=== PATIENT | male | born 2000 | race Caucasian/White ===

== ENCOUNTER 2021-04-11 11:55 | Emergency (ER) | payer OTHER ==
[~2021-04-11] VITALS: Ht 185.4 cm; Wt 140.0 kg
[2021-04-11] MEDS ORDERED: LORazepam 1 MG tablet PO ONE (13:10)
[2021-04-11 13:34] LABS: BASOPHILS % (AUTO) 0.5 % (0-1); EOSINOPHILS # (AUTO) 0.1 X10'3 (0-0.9); EOSINOPHILS % (AUTO) 0.8 % (0-6); HEMATOCRIT 43.5 % (42.0-52.0); LYMPHOCYTES # (AUTO) 1.7 X10'3 (1.1-4.8); LYMPHOCYTES % (AUTO) 21.1 % (21-51); MEAN CORPUSCULAR HEMOGLOBIN 30.4 PG (27.0-31.0); MEAN CORPUSCULAR HGB CONC 34.5 g/dL (33.0-36.5); MEAN PLATELET VOLUME 8.4 FL (7.4-10.4); MONOCYTES # (AUTO) 0.9 X10'3 (0-0.9); MONOCYTES % (AUTO) 11.1 % (2-12); NEUTROPHILS # (AUTO) 5.3 X10'3 (1.8-7.7); NEUTROPHILS % (AUTO) 66.5 % (42-75); PLATELET COUNT 286 X10'3 (140-440); RED BLOOD COUNT 4.94 X10'6 (4.70-6.10); RED CELL DISTRIBUTION WIDTH 14.2 % (11.5-14.5); WHITE BLOOD COUNT 7.9 X10'3 (4.5-11.0)
[2021-04-11 13:39] LABS: ALANINE AMINOTRANSFERASE 24 U/L (12-78); ALBUMIN 4.3 G/DL (3.4-5.0); ALBUMIN/GLOBULIN RATIO 1.2 (1.1-1.5); ALKALINE PHOSPHATASE 61 IU/L (46-116); ANION GAP 11 (8-16); ASPARTATE AMINO TRANSFERASE 13 U/L (10-37); BILIRUBIN,TOTAL 0.8 MG/DL (0.1-1.0); BLOOD UREA NITROGEN 18 MG/DL (7-18); CALCIUM 9.4 MG/DL (8.5-10.1); CHLORIDE 106 MMOL/L (99-107); CREATININE 0.82 MG/DL (0.60-1.10); GLUCOSE 112 MG/DL (70-104); POTASSIUM 3.6 MMOL/L (3.5-5.1); SODIUM 141 MMOL/L (135-145); TOTAL CARBON DIOXIDE 23.6 MMOL/L (24-32); eGFR > 90 ML/MIN
[2021-04-11 13:48] LABS: ETHANOL < 0.010 GM/DL (0.0-0.010)
[2021-04-11 14:14] LABS: URINE AMPHETAMINE SCREEN NEGATIVE (Neg); URINE BARBITUATE SCREEN NEGATIVE (Neg); URINE BENZODIAZEPINES SCREEN NEGATIVE (Neg); URINE CANNABINOID SCREEN POSITIVE (Neg); URINE COCAINE SCREEN NEGATIVE (Neg); URINE METHADONE SCREEN NEGATIVE (Neg); URINE OPIATE SCREEN NEGATIVE (Neg); URINE PHENCYCLIDINE SCREEN NEGATIVE (Neg)
[2021-04-11 14:19] LABS: CLARITY,URINE SLIGHTLY CLOUDY (Clear); COLOR,URINE YELLOW (Yellow); GLUCOSE, URINE NEGATIVE (Neg); KETONES,URINE NEGATIVE (Neg); LEUKOCYTE ESTERASE ,URINE NEGATIVE (Neg); NITRITES, URINE NEGATIVE (Neg); OCCULT BLOOD,URINE NEGATIVE (Neg); PROTEIN,URINE TRACE mg/dl (Neg); UROBILINOGEN,URINE 0.2 E.U/dL (0.2-1.0)
[2021-04-11 14:24] LABS: UA COLLECTION TYPE CLN CATCH MIDSTREAM
[2021-04-11 14:27] LABS: MUCUS STRANDS MANY /LPF (Neg)
[2021-04-11 14:34] LABS: SPERM MODERATE /HPF (NEGATIVE)
[2021-04-11 14:35] LABS: TRANSITIONAL EPI CELLS,URINE MODERATE /HPF; WBC,URINE 0-4 /HPF (0-4)
[2021-04-11 14:37] LABS: BACTERIA,URINE FEW /HPF (Neg); RBC,URINE 0-2 /HPF (0-2); SQUAMOUS EPITHELIAL CELL,UR FEW /LPF (FEW)
[2021-04-11] MEDS ORDERED: QUETIAPINE 50 MG TAB.SR.24H PO STA (16:12)
[2021-04-11] MEDS ORDERED: CLON0.5T4 PO (19:03)
[2021-04-11] MEDS ORDERED: SERT-434 PO (19:03)
[2021-04-11] MEDS ORDERED: clonazePAM 1mg tablet PO ONE (19:10)
--- NOTE | 2021-04-12 00:21 | NUR ---
pt ambulated to restroom on a steady gait. sitter in line of sight.
[2021-04-12] MEDS: clonazePAM 0.5mg tablet PO PRN ×2 (00:42→20:20)
--- NOTE | 2021-04-12 00:44 | NUR ---
pt given po medication as ordered. pt tolerated well.
[2021-04-12] MEDS ORDERED: OLANZapine 2.5MG tablet PO STA (01:53)
[2021-04-12] MEDS: olanzapine 10mg tablet PO SCH ×2 (02:02→07:12)
[2021-04-12] MEDS ORDERED: LORazepam 1 MG tablet PO ONE (07:00)
--- NOTE | 2021-04-12 07:06 | NUR ---
PACKET FAXED TO [facility] FROM BOTH ADMITTING FAX AND NURSES STATION [employer]ACHINES AT 0700 04/12/21
[2021-04-12] MEDS: sertraline 50mg tablet PO SCH (07:11)
[2021-04-12] MEDS ORDERED: diphenhydrAMINE 50 mg/ml inj IM ONE (08:55)
[2021-04-12] MEDS ORDERED: haloperidol lactate 5mg/ml inj IM ONE ×2 (08:55→15:25)
[2021-04-12] MEDS ORDERED: OLANZapine **IM** 10 mg inj. IM ONE (10:15)
[2021-04-12] MEDS ORDERED: clonazePAM 1mg tablet PO ONE (10:15)
[2021-04-12] MEDS ORDERED: midazolam 1 mg/ML 2ml injection IV ONE (11:05)
--- NOTE | 2021-04-12 12:33 | NUR ---
Patient moves from main ER to ER overflow. Oriented to the unit. Somewhat disorganized at this time. When given his lunch tray pt asks, "What shot are you giving me?" Somewhat agitated and restless. Moving around in bed and pacing briefly. Has to be redirected from the exit. Asks frequent questions; whether he is getting meds, when the doctor will see him, if he can shower. Refuses lunch. Resting in bed at this time but continues to audibly exhale frequently.
--- NOTE | 2021-04-12 13:32 | NUR ---
Chayo CUELLAR, stated that patient had a MENDEZ and was requesting tylenol for the pain. SPoke with Dr. acharya who gave verbal order for Tylenol 650 mg PO PRN for pain Q8H to start now. Chayo CUELLAR aware of new order.
[2021-04-12] MEDS ORDERED: acetaminophen 325mg tablet PO PRN (13:35)
--- NOTE | 2021-04-12 14:10 | NUR ---
Patient is awake OOB slowly paces the unit. More linear but continues to be forgetful and asks about lunch and medications several times then forgets again.
--- NOTE | 2021-04-12 15:53 | NUR ---
Patient is awake in bed talking on the phone.
--- NOTE | 2021-04-12 17:25 | NUR ---
Patient is lying in bed. IM Haldol appears helpful but pt still appears somewhat restless.
--- NOTE | 2021-04-12 18:24 | NUR ---
patient is noted talking to himself while resting in bed, no s/sx acute distress
--- NOTE | 2021-04-12 18:30 | NUR ---
PATIENT IS AWAKE AND EXHIBITING SOME ANXIETY. PATIENT STATES HE CAN'T SLEEP. PATIENT IS REDIRECTED BACK TO HIS BED.
--- NOTE | 2021-04-12 23:32 | NUR ---
PATIENT IS SLEEPING QUIETLY ON HIS LEFT SIDE. FREQUENT ROUNDING FOR PATIENT SAFETY.
--- NOTE | 2021-04-13 03:32 | NUR ---
PATIENT SLEEPING QUIETLY IN A LOW FOWLERS POSITION IN BED. NO DISTRESS.
--- NOTE | 2021-04-13 06:30 | NUR ---
PT IS RESTING ON HIS BED SHAKING HIS FEET.
--- NOTE | 2021-04-13 07:05 | NUR ---
PT REQUESTING HIS MEDICATIONS. HE REPORTS ANXIETY AND FEAR OF BEING HERE.
[2021-04-13] MEDS: sertraline 50mg tablet PO SCH (07:14)
[2021-04-13] MEDS: olanzapine 10mg tablet PO SCH (07:14)
[2021-04-13] MEDS: clonazePAM 0.5mg tablet PO PRN ×2 (07:14→19:53)
[2021-04-13] MEDS ORDERED: LORazepam 1 MG tablet PO ONE (07:55)
--- NOTE | 2021-04-13 09:22 | NUR ---
PT CONTINUES TO REQUEST MEDICATIONS TO HELP HIM "FALL ASLEEP." PT C/O DEPRESSION NOW AND IS UPSET OVER HIS LAST PHONE CALL WITH HIS DAD.
--- NOTE | 2021-04-13 11:18 | NUR ---
PT IS NOW RESTING ON HIS RIGHT SIDE. RR EVEN AND UNLABORED. PT SHARED IN THE PAST HE USED FENTANYL. HE REPORTS NOT USING IT FOR AWHILE. HE STATES, "I DON'T USE DRUGS."
[2021-04-13] MEDS: clonazePAM 1mg tablet PO SCH ×2 (12:04→19:06)
--- NOTE | 2021-04-13 12:57 | NUR ---
PT ATE LUNCH AND IS NOW RESTING AGAIN. RR EVEN AN UNLABORED.
--- NOTE | 2021-04-13 14:36 | NUR ---
PT HAS BEEN SOCIALIZING SOME WITH STAFF AND PEERS. HE C/O ANXIETY MOST OF THE DAY. HE REPORTS RESTLESS LEG SYNDROME ALONG WITH RACING THOUGHTS. HE HAS BEEN GIVEN OLANZAPINE FOR TX.
--- NOTE | 2021-04-13 16:52 | NUR ---
PT APPEARS TO BE SLEEPING. RR EVEN AND UNLABORED.
--- NOTE | 2021-04-13 17:55 | NUR ---
PT IS ON THE PHONE. HE HAS BEEN PLEASANT MOST OF THIS SHIFT.
[2021-04-13] MEDS: quetiapine 100mg tablet PO SCH (19:06)
--- NOTE | 2021-04-13 20:00 | NUR ---
One to one with the patient who is reporting that his anxiety is very high. He also reports continued suicidal thoughts that are intrussive. He also reports racing thoughts. When asked if he has been feeling irritable he replied, "I get irritated with myself a lot" He denies thoughts to harm others. He reported that at home he was having intrussive thoughts to put himself in the wood splitter.
--- NOTE | 2021-04-13 21:07 | NUR ---
At around 1999 the patient was very upset by agitated peers. He asked for PRN klonopin which he received. At the time he seemed close to tears. He does appear to be sleeping at this time.
--- NOTE | 2021-04-13 23:53 | NUR ---
The patient appears to be sleeping
--- NOTE | 2021-04-14 01:05 | NUR ---
The patient appears to be sleeping
--- NOTE | 2021-04-14 02:38 | NUR ---
The patient appears to be sleeping
--- NOTE | 2021-04-14 04:27 | NUR ---
The patient appears to be sleeping
[2021-04-14] MEDS: olanzapine 10mg tablet PO SCH (06:32)
[2021-04-14] MEDS: clonazePAM 1mg tablet PO SCH ×2 (06:32→20:04)
[2021-04-14] MEDS: sertraline 50mg tablet PO SCH (06:33)
--- NOTE | 2021-04-14 07:00 | NUR ---
Received patient while he was awake in bed. Patient requested all his morning meds to be given at 0632. Patient continually thrashing around in bed and moaning loudly. Patient reports his medications are not working and he is having anxiety, and reports his legs are "moving all the time." Informed patient that he received his medications at 0632 and it is currently 0700, and we need to wait before we give him any medications. At 0730 patient continues to moan and thrash around in the bed. Went to the ED and spoke with Dr. Greenberg at 0745. Dr. Greenberg ordered Atarax to be given to patient now. Atarax administered at 0749. 0830-Patient continues to inform that the "anxiety medication is not helping." Patient now requesting Ativan 2mg. Informed patient that Dr. Greenberg does not plan to administer any medications at this time. Patient settled down and is now resting at 0845.
[2021-04-14] MEDS ORDERED: hydrOXYzine 25 MG tablet PO ONE (07:45)
--- NOTE | 2021-04-14 09:00 | NUR ---
Patient resting in bed. Up the the bathroom without assistance.
--- NOTE | 2021-04-14 10:05 | NUR ---
Patient requests Ativan for anxiety and "shaking legs." No prn med ordered; patient had Atarax and clonazapam this morning. Patient guided in breathing technique to decrease anxiety.
--- NOTE | 2021-04-14 11:00 | NUR ---
Patient showing no s/s of anxiety. Calm and reflecting that he is feeling much better to staff members. Ambulating in the department. Coloring at this time.
--- NOTE | 2021-04-14 13:00 | NUR ---
Patient talking on the phone with friends about the playoff football games. Patient appears without anxiety at this time. Patient reports that the Atarax helped and feels so much better. Patient met with Kailash, [facility], and informed Kailash that he did not feel safe leaving here. Kailash extended patients 5150 for the next 72 hours per his report.
--- NOTE | 2021-04-14 15:10 | NUR ---
Patient resting in bed eating crackers and talking about football game. Patient smiling and talkative at this time. Patient then stated "I want my Klonopin half mg to be at bedtime and anytime during the day." Informed patient for the second time that Dr. Greenberg was not going to change any of his medications today as he has the medications that he needs were already given this morning and Atarax was also given. Will continue to monitor patient's behavior and anxiety and request medications as needed. Max given techniques to rest and redirect his current complaint of anxiety.
--- NOTE | 2021-04-14 16:35 | NUR ---
Patient speaking to friends on the phone about the football playoffs. Patient moaning at times, then stops abruptly and requests "candy." Patient ambulated in multiple laps in the middle of the nursing department. Will continue to monitor.
--- NOTE | 2021-04-14 17:25 | NUR ---
Patient continues to call multiple friends regarding the current football playoffs. Patient involved in multiple conversations with staff members. Pleasant and happy at this time. Will continue on 5150 per Kailash, [facility].
[2021-04-14] MEDS: clonazePAM 0.5mg tablet PO PRN (18:48)
--- NOTE | 2021-04-14 19:56 | NUR ---
Pt awake at start of shift, immediately began asking for medications. Pt educated on available medications and plan for tonight. Pt verbalized understanding. Pt pleasant and cooperative. Intrusive at times into other pts conversations with staff.
[2021-04-14] MEDS: quetiapine 100mg tablet PO SCH (20:04)
--- NOTE | 2021-04-15 01:11 | NUR ---
Pt awake to BR independantly. Asked for medications to "help me go back to sleep" accepted that he had nothing available.
[2021-04-15] MEDS ORDERED: hydrOXYzine 10 MG tablet PO STA (03:02)
--- NOTE | 2021-04-15 03:16 | NUR ---
Pt awake c/o Anxiety order for x1 10mg Atarax given. Pt appears to have gone back to sleep.
--- NOTE | 2021-04-15 05:13 | NUR ---
Sitting up awake in bed.
[2021-04-15 05:42] VITALS: BP 132/81
--- NOTE | 2021-04-15 07:00 | NUR ---
Patient ambulates with steady gait to nurse desk and restroom. Patient views other patient brushing teeth and desires and practices this healthy hygeine at being inspired by neighbor. Patient asks 3 times about receiving morning meds. Patient is coached about coping mechanisms such as distraction, humor, reflection, and rest as opposed to defaulting to medications when feeling anxious. Meds due at 0800. Compromise is met to give meds at 0730 to appease patient, das trust, and reward behavior for meeting staff correction. Patient denies any self-harm thoughts at this time and appears in physical health that is WNL. Denies pain or discomfort.
[2021-04-15] MEDS: olanzapine 10mg tablet PO SCH (07:31)
[2021-04-15] MEDS: clonazePAM 1mg tablet PO SCH ×2 (07:31→12:32)
[2021-04-15] MEDS: sertraline 50mg tablet PO SCH (07:32)
--- NOTE | 2021-04-15 09:38 | NUR ---
Patient has been yelling out/crying/lamenting his long-term time in this holding area. He is using profanitites and is frustrated that he has been here so long. He expresses anger and frustration at his neighbor getting a bed upstairs before him. He doesn't have PRNs on his list that he used to because he is down to almost no coping skills other than medication. He has been very fixated on medications the entire morning. He is again coached about breathing/meditation and distraction. I express that I also would be frustrated in having to spend that much time here. He speaks with his mother on the phone and then I speak with her as well. Patient becomes very upset at hearing from social worker psychiatric that his delay is in part due to an insurance snag. Patient is crying, yelling out with emotional behavior underdeveloped for his age in years. Patient is coached more and he is frustrated that he is staring at white eedn for days without therapy. I express understanding him. He lies down and is now resting again.
--- NOTE | 2021-04-15 10:30 | NUR ---
Patient initiates apology for outburst to me and my coworker.
--- NOTE | 2021-04-15 11:15 | NUR ---
Patient states that he is feeling twitchy and antsy. I ask if he would like to walk around the unit with me. He states that he will pace for a bit. We banter about exercise and he is using humor, calm, and in better spirits.
--- NOTE | 2021-04-15 12:33 | NUR ---
Patient asks for PRN and given time of day coupled with his recent developing use of coping skills, we accomodate. He is then notified that he is finally getting a bed upstairs. Patient shares that he is so relieved and happy about this.
--- NOTE | 2021-04-15 13:11 | NUR ---
Pt left to [facility] at 1240
[2021-04-15] MEDS ORDERED: CLON-527 PO (17:27)
[2021-04-15] MEDS ORDERED: OLAN10TA3 PO (17:27)
[2021-04-15] MEDS ORDERED: QUET-1 PO (17:28)
[2021-04-16] MEDS ORDERED: HYDR-3686 PO (15:59)
== END 2021-04-15 12:50 ==
LOC: ER 11:56
DX: R45.851 Suicidal ideations (principal); Z20.822 Contact with and (suspected) exposure to COVID-19; F32.9 Major depressive disorder, single episode, unspecified; F41.9 Anxiety disorder, unspecified; R45.1 Restlessness and agitation; Z79.899 Other long term (current) drug therapy
CPT/HCPCS: 36415; 80053; 80305; 80320; 81001; 84443; 85025; 87635; 96372; 96374; 99285; C9803; J1200; J1630; J2250; J3490

== ENCOUNTER 2021-04-15 12:15 | Inpatient (IN) | payer OTHER ==
[~2021-04-15] VITALS: Ht 185.4 cm; Wt 69.3 kg
[~2021-04-15 12:15] MED LIST: CLON0.5T4 PO; SERT-434 PO
[2021-04-15 12:50] VITALS: BP 130/82
[2021-04-15] MEDS ORDERED: mag hydrox/Alum hydrox/simeth 30ml oral suspension PO PRN (13:10)
[2021-04-15] MEDS ORDERED: magnesium hydroxide 30ml (MOM) UD suspension PO PRN (13:10)
[2021-04-15] MEDS ORDERED: loperamide 2mg capsule PO PRN (13:10)
[2021-04-15] MEDS ORDERED: acetaminophen 325mg tablet PO PRN (13:10)
[2021-04-15] MEDS ORDERED: CLON-527 PO (17:27)
[2021-04-15] MEDS ORDERED: OLAN10TA3 PO (17:27)
[2021-04-15] MEDS ORDERED: QUET-1 PO (17:28)
--- NOTE | 2021-04-15 17:56 | NUR ---
Admission Note: Why are they here: Patient is under a 5150 for Danger to Self. Patient reports command auditory hallucinations telling him to end his life, recurring thoughts of suicide, unable to safety plan. Patient received at 1250 from [facility] with order for 5150 for DTS. Patient is a 20yo white male who is very pleasant. Denies SI at this time. Patient reports that a year ago this month, his brother committed suicide. Patient reports his brother was 26 yo, and was also his "Best Friend." Patient showered upon admission to unit, MRSA swab was obtained and sent to the lab, and patient was oriented to his room. Patient is pleasant and upbeat, but also reports periods of anxiety and depression. Patient reports he smokes marijuana, and smokes 1-2 cigarettes approximately 1-2 times a week. 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 Denies pain. Up to Br to void. Appetite good. VSS. (1739) TC placed to [place] to review medications listed on the med rec. Have not received a phone call back from Dr. Dubois now at approximately 1805. Will give the noc shift nurse the patient's medication reconciliation paperwork to review with Dr. Dubois when he returns the call.
[2021-04-15] MEDS ORDERED: clonazePAM 0.5mg tablet PO PRN (19:30)
[2021-04-15 20:06] VITALS: BP 113/77
[2021-04-15] MEDS: clonazePAM 1mg tablet PO SCH (20:12)
[2021-04-15] MEDS ORDERED: quetiapine 100mg tablet PO SCH (21:00)
--- NOTE | 2021-04-16 03:05 | NUR ---
Nursing Progress Note: Legal hold: 5150 Client on involuntary status for DTS. Report received from GARY Brady with use of SBAR. Why are they here: Patient is under a 5150 for Danger to Self. Patient reports command auditory hallucinations telling him to end his life, recurring thoughts of suicide, unable to safety plan. Assessment What has happened this shift: Patient seen in the rec room for 1:1. He's watching a basketball game and talking about a football game that his team won. Patient is fighting thoughts of suicide due to his brothers anniversary of suicide. Brother was also his best friend. Patient states he wants to live, but also wants to live without SI and anxiety. He's cooperative with staff, and takes HS medications with no trouble. S/I, H/I: Denies A/VH: Denies Sleep: See sleep assessment ADL's: Independent Group attendance: N/A Were meds taken: Yes Any med S/E: None reported or observed. Mental Status Exam Appearance: Tall, thin young man that is nicely groomed, wearing green unit scrubs. Eye contact: Good Behavior: Spent evening watching ball games. Speech: Clear Mood: Good Affect: Full Thought process: Linear, goal oriented Thought Content: Meeting needs Cognition: A/O x4 Insight: Fair Judgment: Poor Interventions PRN's used: Ativan 0.5mg Therapeutic interventions: Prompted and encouraged cooperation with 1:1 assessment; medication administration/education/monitoring, encouraged independent performance of ADLs and provide assistance as needed, and maintained Q 15min safety checks. Restraints/seclusion/emergency medication: N/A Justification of Continued Inpatient Treatment: Pt requires medication adjustments in a safe and supportive environment.
[2021-04-16] MEDS ORDERED: LORazepam 0.5 MG tablet PO ONE (04:00)
[2021-04-16] MEDS: clonazePAM 1mg tablet PO SCH (07:58)
[2021-04-16 08:00] VITALS: BP 130/68
[2021-04-16] MEDS ORDERED: olanzapine 10mg tablet PO SCH (08:00)
[2021-04-16] MEDS ORDERED: sertraline 50mg tablet PO SCH (08:00)
[2021-04-16 09:05] LABS: CHOL/HDL RATIO 2.9 (0.00-4.99); CHOLESTEROL 114 MG/DL (0-200); HDL CHOLESTEROL 40 MG/DL (35-60); LDL CHOLESTEROL 58 MG/DL (50-100); TRIGLYCERIDES 26 MG/DL (20-135)
[2021-04-16 09:28] LABS: HEMOGLOBIN A1C 4.9 % (4.5-6.2)
--- NOTE | 2021-04-16 11:49 | NUR ---
Sorin is a 20 y/o male who was placed on 5150 for danger to self due to suicidal ideation with intent to harm himself. He was unable to formulate a viable safety plan. Tristan recently came to [place] from [place] to stay with his Uncle. 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 He reported his older brother suicided a year ago and this has been a trigger for him. He noted his brother was 26 y/o and slit his throat. It was quite shocking to the family.He reported he stopped taking his medications (zoloft and klonopin) after he could not get them refilled from his psychiatrist in [place]. 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 He reported he has had 2 DUI's. The first one was when he was 19 y/o and the 2nd one occurred in Feb 2021. He has court later this month for the DUI. Tristan reported he may want to return to [place] upon discharge. He mentioned he would like to either do some sort of intensive out-patient program or an in-patient program. He reported he went to [facility] previously in-patient for a couple days and may want to return there. He seems to be motivated for treatment. HERNAN Manzano Addendum: 04/16/21 at 1151 by Feli Burciaga SS Amended: Links added.
[2021-04-16] MEDS: hydrOXYzine 25 MG tablet PO PRN ×3 (13:06→20:26)
[2021-04-16] MEDS ORDERED: HYDR-3686 PO (15:59)
--- NOTE | 2021-04-16 16:00 | NUR ---
Patient attended group art therapy for the first time. Patient was able to follow all directives and complete the activities expressing a motivation to grow,learn and solve his problems. He wrote: I think I have a loving and caring heart but there are pieces missing.I feel anxious, depressed and scared but also hopeful....I believe one day, maybe I will find happiness...."Patient was a good listener during the group process and commented how helpful he thought the group was. *Please refer to mobiliThink for a complete overview of todays session. Glenna Hess MA, [facility] [facility]MER #[id number] [facility] Art Therapist Addendum: 04/16/21 at 1601 by Glenna Hess SS Amended: Links added.
--- NOTE | 2021-04-16 17:59 | NUR ---
Nursing Progress Note: Legal hold: 5150 Client on involuntary status for DTS. Report received from GARY Rai with use of SBAR. Why are they here: Patient is under a 5150 for Danger to self. Patient reports command auditory hallucinations telling him to end his life, recurring thoughts of suicide, unable to safety plan. Assessment What has happened this shift: Received patient while he was ambulating back and forth in the hallway. Patient immediately stated I want my morning medications right now. Informed patient that his medications were due to be given at 0800, and that I could not give them early per MD orders. Patient then stated I need Ativan 2mg for my anxiety. Informed the patient that he had just had a dose of Ativan at 0400, and we would need to wait until Dr. Dubois could come in to evaluate him before he would order more Ativan. Patient appeared happy and was smiling, and stated he was looking forward to breakfast. Patient saw Dr. Dubois and then asked for the Atarax 14 times before the order was entered by Dr. Dubois, despite patient being told that I would bring him the Atarax as soon as Dr. Dubois has time to enter the order. Patient received the Atarax at 1306. Patient rested in bed for 15 minutes then got up and talked with others. S/I, H/I: Denies A/VH: Denies Sleep: 7.0 hours ADL's: Independent Group attendance: No Morning Group Meeting Held, Attended Afternoon Group Meeting & Participated. Were meds taken: Yes Any med S/E: None reported or observed. Mental Status Exam Appearance: Tall, thin young man that is nicely groomed, wearing green unit scrubs. Eye contact: Good Behavior: Cooperative Speech: Clear Mood: Good Affect: Cheerful. Energetic Thought process: Linear. Thought Content: Meeting needs. Cognition: A/O x4 Insight: Fair Judgment: Poor Interventions PRN's used: Atarax x1 Therapeutic interventions: Prompted and encouraged cooperation with 1:1 assessment; medication administration/education/monitoring, encouraged independent performance of ADLs and provide assistance as needed, and maintained Q 15min safety checks. Restraints/seclusion/emergency medication: N/A Justification of Continued Inpatient Treatment: Pt requires medication adjustments in a safe and supportive environment.
[2021-04-16 20:09] VITALS: BP 122/83
[2021-04-16] MEDS ORDERED: QUEtiapine 25mg tablet PO SCH (21:00)
--- NOTE | 2021-04-17 02:09 | NUR ---
Nursing Progress Note: Legal hold: 5150 Client on involuntary status for DTS. Report received from GARY Smith with use of SBAR. Why are they here: Patient is under a 5150 for Danger to Self. Patient reports command auditory hallucinations telling him to end his life, recurring thoughts of suicide, unable to safety plan. Assessment What has happened this shift: Patient seen in the hallway at shift change. His mood is upbeat, though he continues to c/o anxiety. He seems to understand now that Benzos are not a long-term solution to his anxiety. Patient has no coping skills, except for a pill, which needs to change. He was disappointed to learn that he had no Klonopin ordered for night time, but was satisfied to find his Seroquel was increased, "that should help me sleep better." S/I, H/I: Denies A/VH: Denies Sleep: See sleep assessment ADL's: Independent Group attendance: N/A Were meds taken: Yes Any med S/E: None reported or observed. Mental Status Exam Appearance: Tall, thin young man that is nicely groomed, wearing street clothes. Eye contact: Good Behavior: Social, talkative, compliant. Speech: Clear Mood: Good Affect: Full Thought process: Linear, goal oriented Thought Content: Meeting needs Cognition: A/O x4 Insight: Fair Judgment: Poor Interventions PRN's used: Atarax 25mg x2 Therapeutic interventions: Prompted and encouraged cooperation with 1:1 assessment; medication administration/education/monitoring, encouraged independent performance of ADLs and provide assistance as needed, and maintained Q 15min safety checks. Restraints/seclusion/emergency medication: N/A Justification of Continued Inpatient Treatment: Pt requires medication adjustments in a safe and supportive environment.
[2021-04-17] MEDS: hydrOXYzine 25 MG tablet PO PRN ×4 (02:58→18:43)
[2021-04-17 07:43] VITALS: BP 126/79
[2021-04-17] MEDS ORDERED: clonazePAM 0.5mg tablet PO SCH (08:00)
[2021-04-17] MEDS ORDERED: sertraline 50mg tablet PO SCH (08:00)
[2021-04-17] MEDS ORDERED: clonazePAM 1mg tablet PO SCH (08:00)
[2021-04-17] MEDS ORDERED: hydrOXYzine 25 MG tablet PO ONE (09:00)
--- NOTE | 2021-04-17 10:44 | NUR ---
Pt had been making statements of having dark thoughts and wishing to self harm to his nurse this morning. Pt had already taken his routine meds and been given PRN Atarax 25 mg. Pt was asking for more medication. DAMIÁN Albarado notified of pt's statements and request for more medication. An order for a one time additional dose of Atarax 25 mg was given and PRN Atarax was increased from 25 mg TID to 50 mg TID. Pt took the additional Atarax 25 mg at 0902. Pt was given some radio headphones to listen to for distraction. A short while later, pt became agitated and began punching the eden in his room. services rep Feli present and attempted a 1:1 with patient, she attempted some breathing exercises. Interventions were unsuccessful, pt could not calm down or contract for safety. DAMIÁN Albarado gave the order to place pt in seclusion. Pt was placed in seclusion at 0930. He was released from seclusion at 1030 at which time he was able to comprehend and verbalize why he had been placed in seclusion. Pt did contract for safety. He apologized for his behavior and asked for the radio headphones again, they were provided to him.
[2021-04-17] MEDS ORDERED: sertraline 50mg tablet PO ONE (15:20)
[2021-04-17] MEDS: clonazePAM 0.5mg tablet PO PRN (15:50)
--- NOTE | 2021-04-17 17:04 | NUR ---
Nursing Progress Note: [place] Legal hold: 5150 Client on involuntary status for DTS. Report received from GARY Rai with use of SBAR. Why are they here: Patient is under a 5150 for Danger to self. Patient reports command auditory hallucinations telling him to end his life, recurring thoughts of suicide, unable to safety plan. Assessment What has happened this shift: Received patient sleeping in his room. He woke for medications and 1:1 assessment completed at the bedside. Pt. denies SI, HI, VH but endorses AH stating the voices tell me to bang my head and scream. Pt. reports he was admitted d/t allot of things going down he reports I dont know when asked about discharge plans. Pt. ate breakfast in the dining room with cohorts, and sat with a older female engaged in heavy conversation. He later c/o anxiety a second time and was given PRN Atarax totaling 50 mg . Less than 30 min pt. began yelling and hitting the wall; 1:1 attempts to deescalate pt. which was unsuccessful, able to calm down or follow redirection and was placed in seclusion room for his own safety. Denial of rights guidelines followed per protocol. Pt. exited seclusion room within an hour and has had no further incidents. Later in the afternoon pt. c/o anxiety and requesting to see the provider. PRN Atarax given. Pt. ate lunch and participated in snacks and also went to group. He approached clinical writer 30 min later requesting I need to see the doctor to discuss my medicine. Pt. was assured he would see provider this afternoon. Pt. received N.O for PRN Klonopin, and Zoloft both given this afternoon S/I, H/I: Denies A/VH: Denies Sleep: 7.0 hours per NOC, no naps ADL's: Independent Group attendance: Yes Were meds taken: Yes Any med S/E: None reported or observed. Mental Status Exam Appearance: Young man that is nicely groomed, wearing green unit scrubs. Eye contact: Good Behavior: Agitated, cooperative at times Speech: Clear Mood: labile Affect: Emotional Thought process: Linear. Thought Content: Meeting needs. Cognition: A/O x4 Insight: Fair Judgment: Poor Interventions PRN's used: Atarax x2, Klonopin Therapeutic interventions: Prompted and encouraged cooperation with 1:1 assessment; medication administration/education/monitoring, encouraged independent performance of ADLs and provide assistance as needed, and maintained Q 15min safety checks. Restraints/seclusion/emergency medication: Seclusion room Justification of Continued Inpatient Treatment: Pt requires medication adjustments in a safe and supportive environment.
--- NOTE | 2021-04-17 17:14 | NUR ---
Group Art Tx, Continued: Patient has been progressively focusing on his feelings and thoughts as we discussed the stages of loss/grief and change in session. He has been expressing some insight as he has been in process. Patient identified himself as being in Denial, Anger and Depression/Sadness.He also saw himself in the suffering stage of change. Patient is also learning that the can go through these stages as he continues to process. Patient wrote: My loss is my brother (1 year + ago). I the past "I've dealt with my stages by using drugs and therapy. I am a person who..."want to change, wants to deal with my loss better. *Please refer to [email or web address] for a complete overview of today session. Glenna Hess MA, [facility] #[id number] [facility] Art Therapist Addendum: 04/17/21 at 1718 by Glenna Hess SS Amended: Links added.
[2021-04-17] MEDS: QUEtiapine 25mg tablet PO SCH (20:13)
[2021-04-17 20:53] VITALS: BP 138/71
--- NOTE | 2021-04-18 00:15 | NUR ---
Nursing Progress Note: Legal hold: 5150 Client on involuntary status for DTS. Report received from GARY Angeles with use of SBAR. Why are they here: Patient is under a 5150 for Danger to Self. Patient reports command auditory hallucinations telling him to end his life, recurring thoughts of suicide, unable to safety plan. Assessment What has happened this shift: Patient seen in the hallway at shift change. His mood is upbeat, though he continues to c/o anxiety and received atarax upon request. Pt denies S.I./H.I. and denies hallucinations. Pt visible and interactive mostly with staff. S/I, H/I: Denies A/VH: Denies Sleep: See sleep assessment ADL's: Independent Group attendance: N/A Were meds taken: Yes Any med S/E: None reported or observed. Mental Status Exam Appearance: Tall, thin young man that is nicely groomed, wearing street clothes. Eye contact: Good Behavior: Social, talkative, compliant. Speech: Clear Mood: Good Affect: Full Thought process: Linear, goal oriented Thought Content: Meeting needs Cognition: A/O x4 Insight: Fair Judgment: Poor Interventions PRN's used: Atarax 25mg Therapeutic interventions: Prompted and encouraged cooperation with 1:1 assessment; medication administration/education/monitoring, encouraged independent performance of ADLs and provide assistance as needed, and maintained Q 15min safety checks. Restraints/seclusion/emergency medication: N/A Justification of Continued Inpatient Treatment: Pt requires medication adjustments in a safe and supportive environment.
[2021-04-18] MEDS: hydrOXYzine 25 MG tablet PO PRN ×3 (05:19→18:47)
[2021-04-18 07:39] VITALS: BP 126/78
[2021-04-18] MEDS: clonazePAM 0.5mg tablet PO SCH (07:40)
[2021-04-18] MEDS: sertraline 50mg tablet PO SCH (07:41)
[2021-04-18] MEDS: clonazePAM 0.5mg tablet PO PRN (10:21)
--- NOTE | 2021-04-18 12:44 | NUR ---
Initial: Pt admit dx anxiety disorder, depression, PTSD, SI per EMR. Noted BMI 18.3 w/ pt reporting no decrease in intake prior to [facility] per EMR. PO intake 100% of regular meals meeting estimated nutritional needs. LBM 04/18, bowel care available PRN. No nutrition intervention needed at this time. Will continue to monitor. Recommendations: 1. Continue regular diet as tolerated 2. Bowel care PRN 3. Weekly wt Addendum: 04/18/21 at [address] Amended: Links added. Addendum: 04/18/21 at [address] SEAN has reviewed and approves of above note.
--- NOTE | 2021-04-18 14:40 | NUR ---
Nursing Progress Note: Legal hold: 5250 Client on involuntary status for DTS. Report received from GARY Rai with use of SBAR. Why are they here: Patient is under a 5150 for Danger to self. Patient reports command auditory hallucinations telling him to end his life, recurring thoughts of suicide, unable to safety plan. Assessment What has happened this shift: Pt was up before breakfast. Pt asked for his medications. Pt was given his routine Zoloft and Klonopin 1 mg. Pt approached this nurse after breakfast to ask for his PRN. Pt had taken his PRN Atarax at 0519 this morning. Pt wanted his Klonopin 0.5 mg PRN once daily. Reminded pt that it was still early in the day and if he took his PRN Klonopin now, he would not have any Klonopin available later. Suggested he try some distraction techniques like listening to the radio headphones. Pt agreed to try. Pt approached this nurse again at around 1015 asking again for the Klonopin. Asked him what was making him feel so anxious. Pt reported, "I'm just thinking a lot about my brother." "I even tried taking a nap but that didn't work. Administered PRN Klonopin 0.5 mg at 1021. Pt rated his depression today at a 9/10. He denied SI. He did c/o of extreme anxiety. Pt was given his PRN Atarax 50 mg at 1324. Discussed the recent increase in his Zoloft and his Seroquel and how it may take a little time for him to feel the dosage adjustments but eventually they should help with his depression anxiety. Pt agreed and stated, "It will be fine." Pt was placed on a 5250 hold today. S/I, H/I: Pt denies A/VH: Pt denies Sleep: Pt slept 8.25 hours last night per noc shift report. ADL's: Independent Group attendance: Yes Were meds taken: Yes Any med S/E: None noted or reported. Mental Status Exam Appearance: Young man with medium length brown somewhat shaggy hair dressed in a black and white plaid long sleeved shirt with a beige t-shirt underneath, rowell sweats and slippers. Eye contact: Good Behavior: Restless, listens to radio headphones, paces, attends groups, socializes with peers. Speech: Clear, audible, normal rate & rhythm. Mood: Depressed, anxious. Affect: Appropriate to situation. Thought process: Linear. Thought Content: Thinking about his brother, believes it will be fine. Cognition: A/O x4 Insight: Fair Judgment: Fair Interventions PRN's used: Danilo Figueroa Therapeutic interventions: 1:1 assessment, therapeutic conversation, active listening, medication administration/education/monitoring, ensured contract for safety, coping skilsl education, distraction, redirection, provided positive reinforcement, and maintained Q15 minute safety checks. Restraints/seclusion/emergency medication: None Justification of Continued Inpatient Treatment: Pt continues to endorse severe depression and anxiety, he needs further medication adjustment and monitoring in a safe and therapeutic environment to prevent harm to himself.
--- NOTE | 2021-04-18 14:52 | NUR ---
Tristan's mom, Soniya (ph# [phone]), called to inquire about discharge. Informed her that Tristan reported he would like to go to [facility] upon discharge. She reported he had been there before and thought it was a good idea. Informed her of the limitations of our program and that this is not a intermediate manager program. Called [facility] (ph# [phone]) and was informed Tristan was NOT on the "do not re-admit list". They requested a packet and reported they would have beds early next week. Faxed a packet to fax# [phone] attn: Lucia. Lucia reported she will call scientific writer back after running his insurance. Called Soniya back to apprise her that scientific writer sent Tristan's packet to [facility]. HERNAN Manzano
--- NOTE | 2021-04-18 14:54 | NUR ---
1:1 The below named therapist met with this patient to follow up on the topic of loss and grief. Patient has been attending groups the past two days where loss and grief issues were the topic of process and discussion. When asked, this patient expressed an interest in completing a handout that would honor his brother, who due to a suicide, a little over a year ago. A handout and drawing paper w/ oil pastels was provided should this patient choose to journal and express himself. He responded positively. This therapist will check back in with this patient 04/23/2021 when returning to work. Patient was encouraged to talk with staff, if he wanted to talk sooner than 04/23/21. *Please refer to [employer] for a complete overview of todays session. Glenna Hess MA, [facility] #[id number] [facility] Art Therapist Addendum: 04/18/21 at 1503 by Glenna Hess SS Amended: Links added.
[2021-04-18 20:00] VITALS: BP 116/72
[2021-04-18] MEDS: QUEtiapine 25mg tablet PO SCH (20:28)
[2021-04-19] MEDS: clonazePAM 0.5mg tablet PO PRN (03:04)
--- NOTE | 2021-04-19 03:11 | NUR ---
Nursing Progress Note: [place] Legal hold: 5250 Client on involuntary status for DTS. Report received from Scottie VEGA with use of SBAR. Why are they here: Patient is under a 5150 for Danger to self. Patient reports command auditory hallucinations telling him to end his life, recurring thoughts of suicide, unable to safety plan. Assessment What has happened this shift: Pt was up pacing the hallways at change of shift. Pt requested atarax from this RN. Told pt to wait patiently as it was shift change. Pt stated his anxiety was 8/10, 50MG if atarax given with good effect. Pt denied SI/HI and rated his depression /10. Pt up in the community room for snacks and took all HS medications without issue. Pt observed watching TV with headphones on. Pt to bed shortly after. 0300 Pt woke up and requested PRN Klonopin due to a nightmare I had and feeling anxious S/I, H/I: Pt denies A/VH: Pt denies Sleep: ADL's: Independent Group attendance: Yes Were meds taken: Yes Any med S/E: None noted or reported. Mental Status Exam Appearance: Young man with medium length brown somewhat shaggy hair dressed in green scrub pants and personal long sleeve shirt Eye contact: Good Behavior: Restless, listens to radio headphones, paces, socializes with peers. Speech: Clear, audible, normal rate & rhythm. Mood: Depressed, anxious. Affect: Appropriate to situation. Thought process: Linear. Thought Content: Feeling anxious Cognition: A/O x4 Insight: Fair Judgment: Fair Interventions PRN's used: Klonopin, Atarax Therapeutic interventions: 1:1 assessment, therapeutic conversation, active listening, medication administration/education/monitoring, ensured contract for safety, coping skilsl education, distraction, redirection, provided positive reinforcement, and maintained Q15 minute safety checks. Restraints/seclusion/emergency medication: None Justification of Continued Inpatient Treatment: Pt continues to endorse severe depression and anxiety, he needs further medication adjustment and monitoring in a safe and therapeutic environment to prevent harm to himself.
[2021-04-19 07:38] VITALS: BP 116/66
[2021-04-19] MEDS: hydrOXYzine 25 MG tablet PO PRN ×3 (08:05→20:12)
[2021-04-19] MEDS: sertraline 50mg tablet PO SCH (08:05)
[2021-04-19] MEDS: clonazePAM 0.5mg tablet PO SCH (08:05)
--- NOTE | 2021-04-19 09:03 | NUR ---
Returned [facility]'s phone call (ph# [phone]). Sorin's insurance was approved. He will have a $250 admission fee and the rest will be covered by his insurance for in-patient stay. They reported they will need updated notes prior to admission. They have concerns about his aggression (punching the wall the other day). Linotype Operator will contact [facility] once Tristan is getting close to discharge. HERNAN Manzano
--- NOTE | 2021-04-19 10:02 | NUR ---
Called Tristan's mom, Soniya (ph# [phone]), to update her about [facility]. She reported she can come picking machine operator helper Tristan upon discharge to take him to [facility]. She reported she will need to have it planned out ahead of time as she is in [place]. HERNAN Manzano
--- NOTE | 2021-04-19 15:11 | NUR ---
Nursing Progress Note: Legal hold: 5250 Client on involuntary status for DTS. Report received from Brandy Worley RN with use of SBAR. Why are they here: Patient is under a 5150 for Danger to self. Patient reports command auditory hallucinations telling him to end his life, recurring thoughts of suicide, unable to safety plan. Assessment What has happened this shift: Pt was up before breakfast. Per noc shift charting, he woke up during the night from a nightmare and wanted his once daily PRN Klonopin 0.5 mg. He was given it at 0304. Pt approached this nurse and asked that his PRN Atarax be given to him along with his routine morning meds. Encouraged pt to wait until later in the shift for a PRN but he was adamant he needed it now rating his anxiety level at a 10/10. PRN Atarax 50 mg was given along with his routine Klonopin and Zoloft with good effect. Pt rated his depression at a 5/10. He denies SI and AH. Pt's diet order was changed today per his request to double protein, no eggs. Pt frequently complains that he does not get enough food to eat at meals and frequently requests snacks. Pt's Seroquel was increased to 300 mg HS and his Atarax was increased to 100 mg TID PRN. There was an incident on the unit with an agitated male peer who required emergent intervention of IM meds and security officers present. Pt approached this RN during the event that this nurse was helping with to say that the situation was giving him anxiety and he needed anxiety medication. Suggested pt remove himself from the area and go to the dining room for awhile. Pt was medicated after the emergent situation was handled with PRN Atarax 100 mg at 1356 with good effect. S/I, H/I: Pt denies A/VH: Pt denies Sleep: Pt slept 6.75 hours last night per noc shift report. ADL's: Independent Group attendance: No groups today. Were meds taken: Yes Any med S/E: None noted or reported. Mental Status Exam Appearance: Young man with medium length brown somewhat shaggy hair dressed in a black and white plaid long sleeved shirt with a beige t-shirt underneath, rowell sweats and slippers. Eye contact: Good Behavior: Restless, listens to radio headphones, paces, makes phone calls, frequently asks for snacks, socializes with staff and peers. Speech: Clear, audible, normal rate & rhythm. Mood: Anxious, depressed. Affect: Mostly calm and euthymic. Thought process: Perseverative Thought Content: Perseverates on food and medications. Cognition: A/O x4 Insight: Fair Judgment: Fair Interventions PRN's used: Atarax Therapeutic interventions: 1:1 assessment, therapeutic conversation, active listening, medication administration/education/monitoring, ensured contract for safety, encouragement to utilize coping skills, encouragement to wait longer in between PRN meds, distraction, redirection, provided positive reinforcement, and maintained Q15 minute safety checks. Restraints/seclusion/emergency medication: None Justification of Continued Inpatient Treatment: Pt continues to endorse depression and severe anxiety, he needs further medication adjustment and monitoring in a safe and therapeutic environment to prevent harm to himself. Plan is for pt to transfer to a dual diagnosis center in [place].
[2021-04-19 20:00] VITALS: BP 123/69
[2021-04-19] MEDS: QUEtiapine 25mg tablet PO SCH (20:11)
--- NOTE | 2021-04-20 01:17 | NUR ---
Nursing Progress Note: [place] Legal hold: 5250 Client on involuntary status for DTS. Report received from Scottie VEGA with use of SBAR. Why are they here: Patient is under a 5150 for Danger to self. Patient reports command auditory hallucinations telling him to end his life, recurring thoughts of suicide, unable to safety plan. Assessment What has happened this shift: Pt up pacing the unit at change of shift. Pt greeted this RN appropriately and was calm and cooperative with care. Pt denied depression and stated his anxiety level is at about 5/10. Pt did request atarax to be given along with his Seroquel this evening. Pt up for snacks and took all HS medications without issue. Noted pt to be listening to headphones before bedtime. No other needs at this time. S/I, H/I: Pt denies A/VH: Pt denies Sleep: ADL's: Independent Group attendance: Were meds taken: Yes Any med S/E: None noted or reported. Mental Status Exam Appearance: Young man with medium length brown somewhat shaggy hair dressed in a black and white plaid long sleeved shirt with a beige t-shirt underneath, rowell sweats and slippers. Eye contact: Good Behavior: Restless, listens to radio headphones, paces, socializes with staff and peers. Speech: Clear, audible, normal rate & rhythm. Mood: Anxious, depressed. Affect: Mostly calm and euthymic. Thought process: Perseverative Thought Content: Perseverates on food and medications. Cognition: A/O x4 Insight: Fair Judgment: Fair Interventions PRN's used: Atarax Therapeutic interventions: 1:1 assessment, therapeutic conversation, active listening, medication administration/education/monitoring, ensured contract for safety, encouragement to utilize coping skills, encouragement to wait longer in between PRN meds, distraction, redirection, provided positive reinforcement, and maintained Q15 minute safety checks. Restraints/seclusion/emergency medication: None Justification of Continued Inpatient Treatment: Pt continues to endorse depression and severe anxiety, he needs further medication adjustment and monitoring in a safe and therapeutic environment to prevent harm to himself. Plan is for pt to transfer to a dual diagnosis center in [place].
[2021-04-20] MEDS: hydrOXYzine 25 MG tablet PO PRN ×2 (04:53→10:04)
[2021-04-20 07:36] VITALS: BP 108/55
[2021-04-20] MEDS: sertraline 50mg tablet PO SCH (07:50)
[2021-04-20] MEDS: clonazePAM 0.5mg tablet PO SCH (07:51)
[2021-04-20] MEDS: clonazePAM 0.5mg tablet PO PRN (13:36)
--- NOTE | 2021-04-20 17:40 | NUR ---
Nursing Progress Note Legal hold: 5250 Client on involuntary status for DTS. Report received from Brandy Worley RN with use of SBAR Why are they here: Patient is under a 5150 for Danger to self. Patient reports command auditory hallucinations telling him to end his life, recurring thoughts of suicide, unable to safety plan. Assessment What has happened this shift: Received Pt in bed sleeping w/o distress at the beginning of the shift. Pt woke and was cooperative with vitals and walked halls before breakfast. Pt took AM meds w/o issue and ate breakfast in his room. Pt tolerated AM assessments and enjoys contact with staff. Pt fixated on PRN meds for anxiety. He received Atarax in AM and Klonopin in the afternoon. Dr. Perales dcd his prn Atarax and started a PRN Seroquel in late afternoon. Pt was seen walking halls, making phone calls and watching TV. He appears bored at times, but does not voice a desire to leave [facility]. S/I, H/I: Pt denies A/VH: Pt denies Sleep: Pt did not sleep this shift ADL's: Independent Group attendance: No groups today Were meds taken: Yes Any med S/E: None noted or reported Mental Status Exam Appearance: Unkempt in green scrubs Eye contact: Good Behavior: Appears bored at times, restless, uses headphones, paces halls, makes phone calls, frequently asks for food, socializes with staff and peers Speech: Clear, audible, normal rate & rhythm Mood: Anxious, depressed Affect: Calm, pleasant Thought process: Ruminates on getting medication Thought Content: Perseverates on food and medications Cognition: A/O x4 Insight: Fair Judgment: Fair Interventions PRN's used: Atarax, Klonopin Therapeutic interventions: 1:1 assessment, therapeutic conversation, active listening, medication administration/education/monitoring, ensured contract for safety, encouragement to utilize coping skills, encouragement to wait longer in between PRN meds, distraction, redirection, provided positive reinforcement, and maintained Q15 minute safety checks. Restraints/seclusion/emergency medication: None Justification of Continued Inpatient Treatment: Pt continues to endorse depression and severe anxiety, he needs further medication adjustment and monitoring in a safe and therapeutic environment to prevent harm to himself. Plan is for pt to transfer to a dual diagnosis center in [place].
[2021-04-20] MEDS: QUEtiapine 25mg tablet PO PRN (18:13)
[2021-04-20 19:06] VITALS: BP 119/68
[2021-04-20] MEDS: QUEtiapine 25mg tablet PO SCH (20:10)
--- NOTE | 2021-04-21 01:25 | NUR ---
Nursing Progress Note: [place] Legal hold: 5250 Client on involuntary status for DTS. Report received from GARY Rubin with use of SBAR Why are they here: Patient is under a 5150 for Danger to self. Patient reports command auditory hallucinations telling him to end his life, recurring thoughts of suicide, unable to safety plan. Assessment What has happened this shift: Received Pt pacing the hallways. Pt came to this RN and greeted appropriately. Pt calm and cooperative with care, states his anxiety is 8/10, denies depression. Pt noted to be watching TV in community room with headphones on. No distress at this time. Pt up for snacks and took HS medications without issue. S/I, H/I: Pt denies A/VH: Pt denies Sleep: ADL's: Independent Group attendance Were meds taken: Yes Any med S/E: None noted or reported Mental Status Exam Appearance: Unkempt in green scrubs Eye contact: Good Behavior: Appears bored at times, restless, uses headphones, paces halls, socializes with staff and peers Speech: Clear, audible, normal rate & rhythm Mood: Anxious, depressed Affect: Calm, pleasant Thought process: Ruminates on getting medication Thought Content: Perseverates on food and medications Cognition: A/O x4 Insight: Fair Judgment: Fair Interventions PRN's used: Therapeutic interventions: 1:1 assessment, therapeutic conversation, active listening, medication administration/education/monitoring, ensured contract for safety, encouragement to utilize coping skills, encouragement to wait longer in between PRN meds, distraction, redirection, provided positive reinforcement, and maintained Q15 minute safety checks. Restraints/seclusion/emergency medication: None Justification of Continued Inpatient Treatment: Pt continues to endorse depression and severe anxiety, he needs further medication adjustment and monitoring in a safe and therapeutic environment to prevent harm to himself. Plan is for pt to transfer to a dual diagnosis center in [place].
[2021-04-21] MEDS: QUEtiapine 25mg tablet PO PRN ×3 (04:25→17:27)
[2021-04-21 07:36] VITALS: BP 114/51
[2021-04-21] MEDS: sertraline 50mg tablet PO SCH (08:03)
[2021-04-21] MEDS: clonazePAM 0.5mg tablet PO SCH (08:04)
[2021-04-21] MEDS: clonazePAM 0.5mg tablet PO PRN (14:31)
--- NOTE | 2021-04-21 16:34 | NUR ---
Nursing Progress Note Legal hold: 5250 Client on involuntary status for DTS. Report received from Brandy Godoy RN with use of SBAR Why are they here: Patient is under a 5150 for Danger to self. Patient reports command auditory hallucinations telling him to end his life, recurring thoughts of suicide, unable to safety plan. Assessment What has happened this shift: Observed pt sleeping on his back at the beginning of the shift. RR even and unlabored. Pt requesting medications early; "klonopin." Pt cooperative for AM assessment, med pass and VS. Pt denies compliants, "my only request is to leave here soon." Pt remains fixated on PRN meds for anxiety. He received Atarax in AM and Klonopin in the afternoon. Pt was seen walking halls, making phone calls and watching TV. S/I, H/I: Pt denies A/VH: Pt denies Sleep: Pt did not sleep this shift ADL's: Independent Group attendance: No groups today Were meds taken: Yes Any med S/E: None noted or reported Mental Status Exam Appearance: Unkempt in green scrubs Eye contact: Good Behavior: Appears bored at times, restless, uses headphones, paces halls, makes phone calls, frequently asks for food, medicine. Speech: Clear, audible, normal rate & rhythm Mood: Anxious, depressed Affect: Calm, pleasant Thought process: Perseverates on getting medication Thought Content: Worried about Covid testing and getting on the plane next week Cognition: A/O x4 Insight: Fair Judgment: Fair Interventions PRN's used: Klonopin, Seroquel Therapeutic interventions: Provided 1:1 assessment with therapeutic communication and, active listening, medication administration/education/monitoring, encouragement to utilize coping skills, encouragement to wait longer in between PRN meds, distraction, redirection, provided positive reinforcement, and maintained Q15 minute safety checks. Restraints/seclusion/emergency medication: None Justification of Continued Inpatient Treatment: Pt continues to endorse depression and severe anxiety, he needs further medication adjustment and monitoring in a safe and therapeutic environment to prevent harm to himself. Plan is for pt to transfer to a dual diagnosis center in [place].
[2021-04-21 19:45] VITALS: BP 115/67
[2021-04-21 20:04] VITALS: BP 130/80
[2021-04-21] MEDS: QUEtiapine 25mg tablet PO SCH (20:06)
[2021-04-21] MEDS: propranolol 10mg tablet PO PRN (20:06)
--- NOTE | 2021-04-22 01:41 | NUR ---
Nursing Progress Note Legal hold: 5250 Client on involuntary status for DTS. Report received from GARY Rubin with use of SBAR Why are they here: Patient is under a 5150 for Danger to self. Patient reports command auditory hallucinations telling him to end his life, recurring thoughts of suicide, unable to safety plan. Assessment What has happened this shift: Patient greeting staff to meet his nurse at the beginning of shift. Pleasant and cooperative with care; compliant with medication. PRN Propranolol provided for c/o increased anxiety. Patient denies SI, HI, A/VH this shift. Patient observed talking on the phone in his room and participated in HS snack prior to bed; observed sleeping and does not appear to be having difficulty. S/I, H/I: Denies A/VH: Denies Sleep: Refer to sleep assessment ADL's: Independent Group attendance: NA Were meds taken: Yes Any med S/E: None observed or reported Mental Status Exam Appearance: Appropriately dressed in green unit attire Eye contact: Good Behavior: Pleasant and cooperative, talking on the phone, pacing the unit, appears bored Speech: Clear, audible, normal rate/rhythm Mood: Bored, anxious Affect: Congruent Thought process: Perseverates on getting medication Thought Content: Meeting needs, anxiety Cognition: A/O x4 Insight: Fair Judgment: Fair Interventions PRN's used: Propranolol Therapeutic interventions: Provided 1:1 assessment with therapeutic communication and, active listening, medication administration/education/monitoring, encouragement to utilize coping skills, encouragement to wait longer in between PRN meds, distraction, redirection, provided positive reinforcement, and maintained Q15 minute safety checks. Restraints/seclusion/emergency medication: NA Justification of Continued Inpatient Treatment: Pt continues to endorse depression and severe anxiety, he needs further medication adjustment and monitoring in a safe and therapeutic environment to prevent harm to himself. Plan is for pt to transfer to a dual diagnosis center in [place].
[2021-04-22] MEDS: sertraline 50mg tablet PO SCH (07:23)
[2021-04-22] MEDS: QUEtiapine 25mg tablet PO PRN ×2 (07:23→15:28)
[2021-04-22 08:00] VITALS: BP 131/68
--- NOTE | 2021-04-22 08:59 | NUR ---
DISCHARGE PLANNING Called [facility] (ph# [phone]) to inquire when they will have a bed available for Max. Was informed they will have a bed Th or Thu of this week. They requested updated notes. Faxed updated notes (04/18-04/21) to . HERNAN Manzano
[2021-04-22] MEDS: clonazePAM 0.5mg tablet PO PRN (10:24)
[2021-04-22] MEDS: propranolol 10mg tablet PO PRN ×2 (11:50→20:58)
[2021-04-22] MEDS: nicotine 7mg patch - 24hr TD SCH (12:25)
--- NOTE | 2021-04-22 13:15 | NUR ---
Spoke with [facility] staff again today. They received the records that were sent this morning. They had concerns that Tristan is on a 5250 and did not want to accept him until the end of the hold. Explained that he has a hearing today and potentially could sign voluntary. They seemed to be ok with him signing voluntary. They reported they want to do a phone interview before accepting him. Met with Tristan and he agreed to sign vol until we can coordinate a discharge plan to [facility] (or somewhere else if it doesn't work out). Apprised Dr Dubois of this as well. Called Tristan's mom, Soniya (ph# [phone]), and apprised her of the situation. Plan: Mosaic Worker will call [facility] tomorrow to inform them that Tristan has signed vol and request they schedule a phone interview. HERNAN Manzano
--- NOTE | 2021-04-22 16:24 | NUR ---
Patient signed Vol
--- NOTE | 2021-04-22 16:41 | NUR ---
Nursing Progress Note: Sorin Jones Legal hold: 5250 Client on involuntary status for DTS. Report received from GARY Combs with use of SBAR REASON FOR ADMIT: Patient is under a 5150 for Danger to self. Patient reports command auditory hallucinations telling him to end his life, recurring thoughts of suicide, unable to safety plan. Assessment Reason for admit: Received pt. pacing the chandler and was immediately approached for Seroquel. Pt. Returned to his room for 1:1 assessment and was provided with morning routine meds and PRN Seroquel. Pt. was agitated wanting to know where his Klonopin was, I discussed recent changes re his Klonopin and that it is not routine, and only available PRN Q day. Pt. denies SI, HI, A/VH. He endorsed previous suicidal thoughts, but I feel better now. Pt. reports he plans to discharge to rehab in [place]. Pt. ate his meals in his room per quarantine guidelines, but did interact with cohorts socially. Pt. often presents as irritable and pacing in the chandler. He approached grant writer c/o allot of anxiety and requested his Klonopin, grant writer offered Propranolol, but he refused wanting only the Klonopin. PRN Klonopin given. Pt. spent some time sitting in his room listening to headphones. Later pt. was heard yelling out in his room. Garage Laborer approached and found pt. sitting on his bed distressed. He reported Im just so anxious, I have all these horrible images of my brother, I just cant deal with all this Garage Laborer encouraged pt. to utilize coping skills and relaxation techniques, pt. reported I cant do it PRN Propranolol given. also wrote N.O for nicotine patch 7mg; med given. S/I, H/I: Pt denies A/VH: Pt denies Sleep: No naps ADL's: Independent Group attendance: No groups today Were meds taken: Yes Any med S/E: None noted or reported Mental Status Exam Appearance: Young male, showered, and wearing street clothes Eye contact: Good Behavior: Restless, paces halls, makes phone calls, frequently asks for medicine. Speech: Clear, audible Mood: Anxious, depressed Affect: Calm, pleasant Thought process: Perseverates on getting medication Thought Content: Medication available Cognition: A/O x4 Insight: Fair Judgment: Fair Interventions PRN's used: Klonopin, Seroquel, Propranolol Therapeutic interventions: Provided 1:1 assessment with therapeutic communication and, active listening, medication administration/education/monitoring, encouragement to utilize coping skills, encouragement to wait longer in between PRN meds, distraction, redirection, provided positive reinforcement, and maintained Q15 minute safety checks. Restraints/seclusion/emergency medication: None Justification of Continued Inpatient Treatment: Pt continues to endorse depression and severe anxiety, he needs further medication adjustment and monitoring in a safe and therapeutic environment to prevent harm to himself. Plan is for pt to transfer to a dual diagnosis center in [place].
[2021-04-22] MEDS: QUEtiapine 25mg tablet PO SCH (20:09)
[2021-04-22 20:19] VITALS: BP 116/62
[2021-04-22] MEDS ORDERED: hydrOXYzine 25 MG tablet PO PRN (22:00)
--- NOTE | 2021-04-23 03:31 | NUR ---
Nursing Progress Note Legal hold: 5250 Client on involuntary status for DTS. Report received from GARY Rubin with use of SBAR Why are they here: Patient is under a 5150 for Danger to self. Patient reports command auditory hallucinations telling him to end his life, recurring thoughts of suicide, unable to safety plan. Assessment What has happened this shift: Patient seen in the chandler at shift change. He was seen at bedside for 1:1. Patient reports that he's still struggling with his brother's . Patient states his brother had no problems, "he was real good at basketball. He was going to play for [employer]." Patient states he was not doing drugs or anything. Still has no idea why he suicided. Patient was pleasant and cooperative with staff. He was compliant with medications before going to bed. S/I, H/I: Denies A/VH: Denies Sleep: Refer to sleep assessment ADL's: Independent Group attendance: NA Were meds taken: Yes Any med S/E: None observed or reported Mental Status Exam Appearance: Appropriately dressed in street clothes Eye contact: Good Behavior: Pleasant and cooperative, talking on the phone, pacing the unit, appears bored Speech: Clear, audible, normal rate/rhythm Mood: Bored, anxious Affect: Congruent Thought process: Perseverates on getting medication Thought Content: Meeting needs, anxiety Cognition: A/O x4 Insight: Fair Judgment: Fair Interventions PRN's used: Propranolol Therapeutic interventions: Provided 1:1 assessment with therapeutic communication and, active listening, medication administration/education/monitoring, encouragement to utilize coping skills, encouragement to wait longer in between PRN meds, distraction, redirection, provided positive reinforcement, and maintained Q15 minute safety checks. Restraints/seclusion/emergency medication: NA Justification of Continued Inpatient Treatment: Pt continues to endorse depression and severe anxiety, he needs further medication adjustment and monitoring in a safe and therapeutic environment to prevent harm to himself. Plan is for pt to transfer to a dual diagnosis center in [place].
[2021-04-23 08:00] VITALS: BP 95/60
[2021-04-23] MEDS: nicotine 7mg patch - 24hr TD SCH (08:39)
[2021-04-23] MEDS: sertraline 50mg tablet PO SCH (08:39)
[2021-04-23] MEDS: QUEtiapine 25mg tablet PO PRN ×2 (08:39→17:32)
--- NOTE | 2021-04-23 09:11 | NUR ---
Spoke to Kathleen at [facility] (ph# [phone]). Informed her that Tristan signed voluntary yesterday. She reported he called and completed the screening yesterday. Faxed updated notes from yesterday. She is going to present to the clinical team and call chief writer back later today. She reported they may have a bed at the end of the week. HERNAN Manzano
[2021-04-23] MEDS: clonazePAM 0.5mg tablet PO PRN (09:57)
--- NOTE | 2021-04-23 12:59 | NUR ---
Tristan has been accepted at [facility], however, they do not have any beds available. I was informed this afternoon that they may not have a bed available until next week. Informed Tristan of this and he stated he really wants to leave. Tristan's mom, Soniya, called and informed her they may not have a bed until next week. She was not open to having Max stay with her until he can get into [facility]. She suggested [facility]. Talked to Tristan about [facility] and he was open to the idea of going there instead of [facility]. Spoke to Shireen (ph# [phone]) at [facility] who reported they do have beds and will call and do a pre-assessment over the phone with Tristan today. Tristan's dad, Dion (ph# [phone]), left a message requesting a call back. Tristan gave verbal permission for ticket writer to speak to his dad. Called Dion back. He had questions regarding discharge plan. He reported Tristan told him he is "scared" to be here because there is Covid on the unit and he keeps hearing "[employer]" called. Plan: Shireen reported she will follow up with ticket writer regarding the pre-assessment with Tristan. HERNAN Manzano
[2021-04-23] MEDS: propranolol 10mg tablet PO PRN (14:26)
[2021-04-23] MEDS: acetaminophen 325mg tablet PO PRN ×2 (14:58→23:27)
--- NOTE | 2021-04-23 15:45 | NUR ---
1:1 The below named therapist met with this patient for the purpose of follow up on a journal & grief exercise that was provided last week 05/16/20. Patient informed this therapist that he had not completed the exercise and was "not in the mood, feeling quite anxious, to do anything today." Patient was encouraged to work on the exercise when he felt better. He was also provided with an expressive art exercise to be completed during his leisure time, that can be part of a mural project. Will follow up tomorrow 04/25/20 Glenna Hess MA, CANNED FOOD RECONDITIONING INSPECTOR #[id number] [facility] Art Therapist
--- NOTE | 2021-04-23 17:08 | NUR ---
Nursing Progress Note Legal hold: 5250 Client on involuntary status for DTS. Report received from GARY Rai with use of SBAR Why are they here: Patient is under a 5150 for Danger to self. Patient reports command auditory hallucinations telling him to end his life, recurring thoughts of suicide, unable to safety plan. Assessment What has happened this shift: Received patient while he was sleeping in his room. Patient awoke at approximately 0745 and was ambulating in the hallway. Patient received am medications, and a 1:1 patient assessment and interview completed. Patient denies anxiety at this time. Eating breakfast. Appetite good. Patient denies and SI or any other delusions at this time. Educated patient to wear his yellow mask outside his room at all times. Patient came out of his room at 0839 and requested Seroquel right now. Seroquel given then patient was seen in chandler talking to many patients as well as in the Community Room watching TV. Patient requested Klonopin at 0957 for Anxiety. No tremors noted. Patient continued to stay awake through the morning, and requested Atarax at 1249. Patient reported that all the medications helped with his anxiety. At 1426, patient in hallway and then entered the Charting Room while Dr. Dubois was speaking to myself and another RN on patient updates. I asked the patient to go to his room and I would be in there in a few minutes after our meeting. Went to patients room and asked what he needed when he entered the room where Dr. Dubois was speaking to us, and he replied I want so more Klonopin from Dr. Dubois. Informed patient that Dr. Dubois has informed him multiple times that he would not be increasing his dose of Klonopin. Patient stated I need Klonopin because its the only thing that works for me. Patient was then informed that he could have Inderal for anxiety. Patients heart rate was 78. Inderal given at 1426. Patient then watched TV and reported that he had a headache rated at an 8 on a scale of 1-10. Patient received relief from his MENDEZ from receiving Tylenol. Encouraged patient to rest after he receives a medication for anxiety and encouraged him to try to do so that his anxiety will improve. Patient continued to ask for anything, throughout the day, and received at least one dose of each prn medication for anxiety. Informed Dr. Dubois. Patient informed me Im scared here. When asked why, he stated Theres a COVID in here. Explained to the patient that there is one patient here with COVID that was in isolation at this time, and if he continues to wear his mask as well as wash his hands frequently in his room between all activities, these were ways where we might be able to reduce our risk in getting COVID. Will continue to support and address all patient issues as they arise. S/I, H/I: Denies A/VH: Denies Sleep: 7.5 hours ADL's: Independent Group attendance: No Group Attendance Held Today Were meds taken: Yes, without hesitation. Any med S/E: None observed or reported Mental Status Exam Appearance: Tall young male dressed in green scrubs Eye contact: Good Behavior: Medication Focused. Speech: Clear. Mood: Bored Affect: Congruent Thought process: Perseverates on getting medication Thought Content: Meeting needs, anxiety Cognition: A/O x4 Insight: Fair Judgment: Fair Interventions PRN's used: Seroquel, Klonopin, Inderal, Atarax, Tylenol. Therapeutic interventions: Provided 1:1 assessment with therapeutic communication and, active listening, medication administration/education/monitoring, encouragement to utilize coping skills, encouragement to wait longer in between PRN meds, distraction, redirection, provided positive reinforcement, and maintained Q15 minute safety checks. Restraints/seclusion/emergency medication: NA Justification of Continued Inpatient Treatment: Pt continues to endorse depression and severe anxiety, he needs further medication adjustment and monitoring in a safe and therapeutic environment to prevent harm to himself. Plan is for pt to transfer to a dual diagnosis center in [place].
--- NOTE | 2021-04-23 19:01 | NUR ---
Pt with fever and reports of a H/A, notified Dr Dubois, he ordered Covid test now.
[2021-04-23 19:08] VITALS: BP 114/65
--- NOTE | 2021-04-23 19:40 | NUR ---
Pt is covid positive, nursing pipe joints supervisor notified and pt to be kept in isolation.
[2021-04-23] MEDS: QUEtiapine 25mg tablet PO SCH (20:03)
[2021-04-23] MEDS: hydrOXYzine 25 MG tablet PO PRN (20:04)
[2021-04-24] MEDS: hydrOXYzine 25 MG tablet PO PRN ×2 (02:04→11:37)
--- NOTE | 2021-04-24 03:48 | NUR ---
Nursing Progress Note Legal hold: 5250 Client on involuntary status for DTS. Report received from GARY Rubin with use of SBAR Why are they here: Patient is under a 5150 for Danger to self. Patient reports command auditory hallucinations telling him to end his life, recurring thoughts of suicide, unable to safety plan. Assessment What has happened this shift: Patient in his room at shift change. He c/o MENDEZ, and Tylenol provided with some relief. Vitals received showing low grade fever. Patient tested for Covid, results positive. Informed patient he will be in isolation. Patient now has somatic complaints. Complains his ribs are hurting bad. asked what he thought it might be, "it's because I smoked a bunch of fentanyl last year." He wants stronger pain medicine. Next his neck hurts. Patient anxious wants Klonopin, received Atarax x2 through the night, Tylenol x2 with relief. Patient's anxiety keeps him from sleeping well. He has been asleep ~2 1/2 hours at this time. S/I, H/I: Denies A/VH: Denies Sleep: Refer to sleep assessment ADL's: Independent Group attendance: NA Were meds taken: Yes Any med S/E: None observed or reported Mental Status Exam Appearance: Appropriately dressed in street clothes Eye contact: Good Behavior: Pleasant and cooperative, appears bored, scared Speech: Clear, audible, normal rate/rhythm Mood: Bored, anxious Affect: Congruent Thought process: Perseverates on getting medication Thought Content: Meeting needs, anxiety Cognition: A/O x4 Insight: Fair Judgment: Fair Interventions PRN's used: Atarax x2, Tylenol x2 Therapeutic interventions: Provided 1:1 assessment with therapeutic communication and, active listening, medication administration/education/monitoring, encouragement to utilize coping skills, encouragement to wait longer in between PRN meds, distraction, redirection, provided positive reinforcement, and maintained Q15 minute safety checks. Restraints/seclusion/emergency medication: NA Justification of Continued Inpatient Treatment: Pt continues to endorse depression and severe anxiety, he needs further medication adjustment and monitoring in a safe and therapeutic environment to prevent harm to himself. Plan is for pt to transfer to a dual diagnosis center in [place].
[2021-04-24] MEDS: acetaminophen 325mg tablet PO PRN ×3 (04:49→13:56)
[2021-04-24 07:33] VITALS: BP 102/43
--- NOTE | 2021-04-24 08:05 | NUR ---
Lucia at [facility] (ph# [phone]), called and reported they have a bed available for Tristan. Informed her that Tristan tested positive for Covid last night and that he will be tested again after 5 days. She reported their policy is they can admit after 10 days of quarantine, so on the day which will be May 04. Tristan's mom, Soniya (ph# [phone]), called. Apprised her that Tristan could admit on May 04 if they have a bed. She reported his plane ticket for Thursday was cancelled and once he is able to discharge she will purchase another ticket. She reported he can stay with family while he waits to go to [facility]. HERNAN Manzano
[2021-04-24] MEDS: clonazePAM 0.5mg tablet PO PRN (08:50)
[2021-04-24] MEDS: sertraline 50mg tablet PO SCH (08:50)
[2021-04-24] MEDS: nicotine 7mg patch - 24hr TD SCH (08:52)
[2021-04-24] MEDS ORDERED: ibuprofen 200mg tablet PO PRN (11:30)
[2021-04-24 13:57] VITALS: BP 112/54
--- NOTE | 2021-04-24 14:26 | NUR ---
Reassessment: Pt found to be COVID positive 04/23 per EMR. Pt continues on regular diet and overall eating well, documented with mostly 100% PO intake, however down to 25% PO intake at two most recent meals. Noted pt with c/o MENDEZ per field service coordinator, possibly impacting PO intake at this time. LBM 04/21, with PRN bowel care available. No nutrition intervention implemented at this time. Will continue to follow and make recommendations as appropriate. Recommendations: 1. Continue regular diet 2. Monitor need for additional protein 3. Routine bowel care 4. Weekly scaled weights Addendum: 04/24/21 at [address] Amended: Links added. Addendum: 04/25/21 at [address] Noted pt already receiving double protein BIDLD with no eggs per diet order.
--- NOTE | 2021-04-24 15:33 | NUR ---
Nursing Progress Note: DEMARIO Legal hold: Voluntary status Report received from KARLA Rai with use of SBAR Why are they here: Patient is under a 5150 for DTS. Patient reports command auditory hallucinations telling him to end his life, recurring thoughts of suicide, unable to formulate a plan for food, penitentiary or clothing. Assessment What has happened this shift: Received patient sleeping at shift, no distress noted . Pt is on Covid restriction, typewriter ribbon winder looked into the room, respirations even and unlabored. Pt was compliant with medication and care. Pt reported headache and body aches on a scale of 9/10. Motrin and Tylenol were alternated which were moderately affective. Pt was encouraged to hydrate throughout the day. Vitals were obtained at 1350 BP 112/54; T 99.1; HR 110; SpO2 100%. Pt denies all psychotic symptoms stating I just need this Covid to get over with. This sucks. S/I, H/I: Pt denies both. A/VH: Pt denies both. Sleep: 2.75 hours per sleep assessment. Intermittent naps today. ADL's: Independent Group attendance: Pt on Covid restriction. Were meds taken: Yes, without hesitation. Any med S/E: None observed or reported Mental Status Exam Appearance: Tall young male dressed in green scrubs Eye contact: Good Behavior: Anxious r/t having to isolate, cooperative, frustrated. Speech: Clear, a little elevated at times, Mood: Fatigued Affect: Congruent with mood Thought process: Linear Thought Content: Not feeling well Cognition: A/O x4 Insight: Fair Judgment: Fair Interventions PRN's used: Tylenol, motrin, klonopin, atarax Therapeutic interventions: Covid precautions, therapeutic communication, encouraged hydration throughout the shift, active listening, medication administration/education/monitoring, encouraged to utilize coping skills, encouraged to wait longer between PRN meds, distraction, redirection, provided positive reinforcement, and maintained Q15 minute safety checks. Restraints/seclusion/emergency medication: NA Justification of Continued Inpatient Treatment: Patient continues to voice anxiety and requires a safe and therapeutic milieu until discharge. Pt has been accepted to [facility] in [facility]. Pt is positive for Covid and requires isolation. Pt will transfer after required isolation time is complete.
[2021-04-24] MEDS: QUEtiapine 25mg tablet PO PRN (15:44)
[2021-04-24] MEDS: guaiFENesin 200 MG/10 ML oral syrup UD cup PO PRN (17:55)
[2021-04-24] MEDS: ibuprofen 200mg tablet PO PRN (18:50)
[2021-04-24 20:00] VITALS: BP 108/73
[2021-04-24] MEDS: QUEtiapine 25mg tablet PO SCH (20:04)
--- NOTE | 2021-04-25 00:45 | NUR ---
Nursing Progress Note: DEMARIO Legal hold: Voluntary status Report received from KARLA Angeles with use of SBAR Why are they here: Patient is under a 5150 for DTS. Patient reports command auditory hallucinations telling him to end his life, recurring thoughts of suicide, unable to formulate a plan for food, retirement or clothing. Assessment What has happened this shift: Received patient in his room on COVID restrictions. . Pt requesting Motrin for 8/10 body aches. He states that he feels better than he did yesterday. He denies MH symptoms at this time. Pt was compliant with medication and care. (Requests HS medications as soon as he can get them.) S/I, H/I: Pt denies both. A/VH: Pt denies both. Sleep: ADL's: Independent Group attendance: Pt on Covid restriction. Were meds taken: Yes, without hesitation. Any med S/E: None observed or reported Mental Status Exam Appearance: Tall young male dressed in green scrubs Eye contact: Good Behavior: cooperative, frustrated. Speech: Clear, a little elevated at times, Mood: Fatigued Affect: Congruent with mood Thought process: Linear Thought Content: Feeling better than yesterday Cognition: A/O x4 Insight: Fair Judgment: Fair Interventions PRN's used: motrin Therapeutic interventions: Covid precautions, therapeutic communication, encouraged hydration throughout the shift, active listening, medication administration/education/monitoring, encouraged to utilize coping skills, encouraged to wait longer between PRN meds, distraction, redirection, provided positive reinforcement, and maintained Q15 minute safety checks. Restraints/seclusion/emergency medication: NA Justification of Continued Inpatient Treatment: Patient continues to voice anxiety and requires a safe and therapeutic milieu until discharge. Pt has been accepted [facility]. Pt is positive for Covid and requires isolation. Pt will transfer after required isolation time is complete.
[2021-04-25] MEDS: QUEtiapine 25mg tablet PO PRN ×2 (03:04→12:14)
[2021-04-25] MEDS: acetaminophen 325mg tablet PO PRN ×3 (03:22→14:33)
[2021-04-25] MEDS: ibuprofen 200mg tablet PO PRN ×2 (07:36→16:23)
[2021-04-25] MEDS: sertraline 50mg tablet PO SCH (07:36)
[2021-04-25] MEDS: nicotine 7mg patch - 24hr TD SCH (07:41)
[2021-04-25 08:00] VITALS: BP 123/81
--- NOTE | 2021-04-25 08:14 | NUR ---
Noted pt already receiving double protein BIDLD with no eggs per diet order. Addendum: 04/25/21 at [address] Amended: Links added.
[2021-04-25] MEDS: hydrOXYzine 25 MG tablet PO PRN ×2 (09:55→16:23)
[2021-04-25] MEDS: guaiFENesin 200 MG/10 ML oral syrup UD cup PO PRN (09:55)
[2021-04-25] MEDS ORDERED: QUEtiapine 25mg tablet PO ONE (12:45)
--- NOTE | 2021-04-25 16:17 | NUR ---
Nursing Progress Note Legal hold: 5250 Client on involuntary status for DTS. Report received from RN with use of SBAR Why are they here: Patient is under a 5150 for Danger to self. Patient reports command auditory hallucinations telling him to end his life, recurring thoughts of suicide, unable to safety plan. Assessment What has happened this shift: Received Pt in bed sleeping w/o distress at the beginning of the shift. Pt woke and was cooperative with vitals and remained in bed. Pt took AM meds w/o issue and ate breakfast in his room. Pt tolerated AM assessments and enjoys contact with staff, as he is isolated to room secondary to covid illness. Pt reports generalized aches and intermittent MENDEZ. Multiple PRN meds given throughout the day for flu like Sxs. . Pt became irritable and wanted to leave after hearing that klonopin had been discontinued. He received Atarax and Seroquel and was able to shower in the afternoon. Pt responds positively to verbal attention and intervention. Overall bored and wants to get out of room when pain meds take effect. S/I, H/I: Pt denies A/VH: Pt denies Sleep: Appeared to nap in AM ADL's: Independent Group attendance: No groups today Were meds taken: Yes Any med S/E: None noted or reported Mental Status Exam Appearance: Unkempt/ discheveled Eye contact: Good Behavior: Lethargic, irritable at times Speech: Clear, audible, normal rate & rhythm Mood: Anxious, depressed Affect: Calm, pleasant Thought process: Ruminates on getting medication Thought Content: Perseverates on food and medications Cognition: A/O x4 Insight: Fair Judgment: Fair Interventions PRN's used: Atarax, Seroquel, Tylenol, motrin Therapeutic interventions: 1:1 assessment, therapeutic conversation, active listening, medication administration/education/monitoring, ensured contract for safety, encouragement to utilize coping skills, encouragement to wait longer in between PRN meds, distraction, redirection, provided positive reinforcement, and maintained Q15 minute safety checks and covid isolation. Restraints/seclusion/emergency medication: None Justification of Continued Inpatient Treatment: Pt continues to endorse depression and severe anxiety, he needs further medication adjustment and monitoring in a safe and therapeutic environment to prevent harm to himself. Plan is for pt to transfer to a dual diagnosis center in [place].
[2021-04-25 19:00] VITALS: BP 124/80
[2021-04-25] MEDS: quetiapine 100mg tablet PO SCH (20:34)
--- NOTE | 2021-04-26 03:17 | NUR ---
Nursing Progress Note Legal hold: 5250 Client on involuntary status for DTS. Report received from RN with use of SBAR Why are they here: Patient is under a 5150 for Danger to self. Patient reports command auditory hallucinations telling him to end his life, recurring thoughts of suicide, unable to safety plan. Assessment What has happened this shift: Patient in room due to covid related isolation . Patient had door cracked talking to nest door neighbor, pt asked to go back into room for quarantine. Pt 1:1 patient is cooperative but asks for Robitussin and Tylenol, it is explained to patient due to having IB-Profen an hour ago he could get either Robitussin or Tylenol. Patient picked to take Robitussin with evening meds. Patients vital signs were WNL. Pt talked mostly on the phone with his girlfriend and would poke his head out of his room to talk to neighbor. Pt took evening meds w/o complications and went to bed shortly after. S/I, H/I: Pt denies A/VH: Pt denies Sleep: See sleep hours ADL's: Independent Group attendance: No group in evenings Were meds taken: Yes Any med S/E: None noted or reported Mental Status Exam Appearance: Unkempt/ dishevelled Eye contact: Good Behavior: Lethargic, irritable at times Speech: Clear, audible, normal rate & rhythm Mood: Anxious, depressed Affect: Calm, pleasant Thought process: Ruminates on getting medication Thought Content: Perseverates on food and medications Cognition: A/O x4 Insight: Fair Judgment: Fair Interventions PRN's used: Robitussin Therapeutic interventions: 1:1 assessment, therapeutic conversation, active listening, medication administration/education/monitoring, ensured contract for safety, encouragement to utilize coping skills, encouragement to wait longer in between PRN meds, distraction, redirection, provided positive reinforcement, and maintained Q15 minute safety checks and covid isolation. Restraints/seclusion/emergency medication: None Justification of Continued Inpatient Treatment: Pt continues to endorse depression and severe anxiety, he needs further medication adjustment and monitoring in a safe and therapeutic environment to prevent harm to himself. Plan is for pt to transfer to a dual diagnosis center in [place].
[2021-04-26 07:31] VITALS: BP 114/69
[2021-04-26] MEDS: nicotine 7mg patch - 24hr TD SCH ×2 (08:00→08:03)
[2021-04-26] MEDS: sertraline 50mg tablet PO SCH (08:03)
--- NOTE | 2021-04-26 09:05 | NUR ---
DISCHARGE PLAN Tristan's mom, Soniya (ph# [phone]), called and reported Tristan has a plane ticket for Thursday at 11 AM out of [place]. She reported his aunt will pick him up around 9:30 AM on Thursday. Informed her that the plan is for Tristan to get tested again for Covid on Thursday. She requested he get his test done early on Thursday AM. Informed her that he could potentially still test positive and she did not seem to be concerned about this. HERNAN Manzano
[2021-04-26] MEDS: QUEtiapine 25mg tablet PO PRN ×2 (09:10→17:10)
[2021-04-26] MEDS: hydrOXYzine 25 MG tablet PO PRN (13:33)
[2021-04-26] MEDS ORDERED: QUEtiapine 25mg tablet PO ONE (15:05)
[2021-04-26] MEDS ORDERED: haloperidol lactate 5mg/ml inj ONE (15:57)
[2021-04-26] MEDS ORDERED: diphenhydrAMINE 50 mg/ml inj ONE (15:57)
--- NOTE | 2021-04-26 16:31 | NUR ---
Nursing Progress Note: Legal hold: 5250 Client on involuntary status for DTS. Report received from KARLA Ward with use of SBAR Why are they here: Patient is under a 5150 for Danger to self. Patient reports command auditory hallucinations telling him to end his life, recurring thoughts of suicide, unable to safety plan. Assessment What has happened this shift: Patient resting quietly in bed at the start of the shift. Cooperative with 1:1 assessment and medications. Remains on isolation for positive covid. No s/sx respiratory distress. Denies any covid symptoms. States, I feel fine. After breakfast he requests PRN Seroquel for anxiety which appears effective for a time. After lunch he complains of anxiety again. PRN Atarax is given and appears helpful. He appears restless and depressed. States he is having difficulty with his isolation but is leaving Thursday for [place] which he is excited for. In the later afternoon the patient becomes more anxious. Provider gives a new order for x1 seroquel which is given but does not appear effective. Patient is herd yelling in his room. Crying on the phone with his mom. Provider gives an order for x1 IM Benadryl and Haldol which appears effective. S/I, H/I: Denies A/VH: Denies Sleep: 2 hours in the morning, naps off and on. ADL's: Independent Group attendance: NA Were meds taken: Refuses Nicotine patch. Other medications administered as ordered. Any med S/E: None observed or reported Mental Status Exam Appearance: Young appearing male, clean, neat, wearing casual personal attire. Eye contact: Good Behavior: Cooperative, fatigued Speech: Clear, normal rate/ volume Mood: Good. Appears somewhat anxious/ depressed Affect: Constricted Thought process: Linear Thought Content: Perseverates on medications Cognition: A/O x4 Insight: Fair Judgment: Fair Interventions PRN's used: Seroquel, Atarax Therapeutic interventions: 1:1 assessment, therapeutic conversation, active listening, medication administration/education/monitoring, ensured contract for safety, encouragement to utilize coping skills, encouragement to wait longer in between PRN meds, distraction, redirection, provided positive reinforcement, and maintained Q15 minute safety checks and covid isolation. Restraints/seclusion/emergency medication: None Justification of Continued Inpatient Treatment: Pt continues to endorse depression and severe anxiety, he needs further medication adjustment and monitoring in a safe and therapeutic environment to prevent harm to himself. Plan is for pt to transfer to a dual diagnosis center in [place].
[2021-04-26] MEDS ORDERED: benztropine 1mg tablet PO ONE (16:40)
[2021-04-26] MEDS ORDERED: benztropine 1mg tablet PO PRN (17:45)
[2021-04-26 20:00] VITALS: BP 132/79
[2021-04-26] MEDS: quetiapine 100mg tablet PO SCH (20:38)
--- NOTE | 2021-04-27 01:04 | NUR ---
Nursing Progress Note: Legal hold: 5250 Client on involuntary status for DTS. Report received from Jose Antonio RN with use of SBAR Why are they here: Patient is under a 5150 for Danger to self. Patient reports command auditory hallucinations telling him to end his life, recurring thoughts of suicide, unable to safety plan. Assessment What has happened this shift: Pt in room at beginning of shift, asks if he can get meds. Explained to pt that his evening meds will be made available at the usual time. Pt denies A/V H, this nurse went into pts room and cleaned up environment and took out trash. Pt laid in bed and made short replies, "yes", "no" responses and pretended I wasn't there. Pt refused snack but took evening meds w/o complications, pt went to sleep shortly after. S/I, H/I: Denies A/VH: Denies Sleep: See sleep hours ADL's: Independent Group attendance: NA Were meds taken:yes Any med S/E: None observed or reported Mental Status Exam Appearance: Young appearing male, clean, neat, wearing casual personal attire. Eye contact: Good Behavior: Cooperative, fatigued Speech: Clear, normal rate/ volume Mood: Good. Appears somewhat anxious/ depressed Affect: Constricted Thought process: Linear Thought Content: Perseverates on medications Cognition: A/O x4 Insight: Fair Judgment: Fair Interventions PRN's used: none Therapeutic interventions: 1:1 assessment, therapeutic conversation, active listening, medication administration/education/monitoring, ensured contract for safety, encouragement to utilize coping skills, encouragement to wait longer in between PRN meds, distraction, redirection, provided positive reinforcement, and maintained Q15 minute safety checks and covid isolation. Restraints/seclusion/emergency medication: None Justification of Continued Inpatient Treatment: Pt continues to endorse depression and severe anxiety, he needs further medication adjustment and monitoring in a safe and therapeutic environment to prevent harm to himself. Plan is for pt to transfer to a dual diagnosis center in [place].
[2021-04-27] MEDS: hydrOXYzine 25 MG tablet PO PRN ×3 (07:14→20:09)
[2021-04-27] MEDS: QUEtiapine 25mg tablet PO PRN (07:14)
[2021-04-27] MEDS ORDERED: quetiapine 100mg tablet PO PRN (07:40)
[2021-04-27 07:48] VITALS: BP 99/72
[2021-04-27] MEDS: nicotine 7mg patch - 24hr TD SCH (08:00)
[2021-04-27] MEDS: sertraline 50mg tablet PO SCH (08:51)
[2021-04-27] MEDS ORDERED: LORazepam 1 MG tablet PO ONE (14:50)
[2021-04-27] MEDS: quetiapine 100mg tablet PO PRN (16:04)
--- NOTE | 2021-04-27 17:46 | NUR ---
Nursing Progress Note: Legal hold: 5250 Client on involuntary status for DTS. Report received from RN with use of SBAR Why are they here: Patient is under a 5150 for Danger to self. Patient reports command auditory hallucinations telling him to end his life, recurring thoughts of suicide, unable to safety plan. Assessment What has happened this shift: Received Pt in bed sleeping w/o distress at the beginning of the shift. Pt woke and was cooperative with vitals and returned to sleep. Pt took AM meds w/o issue and ate breakfast in his room. Pt tolerated AM assessments and was quiet most of the morning. He reports having no body aches or MENDEZ. Pt showered today. Pt became agitated and screaming I cant take it anymoreIm going crazy. Pt given PRN Seroquel and atarax in AM and afternoon. Pt talked with PA and was given Ativan 1mg once, with good effect. S/I, H/I: Pt denies A/VH: Pt denies Sleep: Appeared to nap in AM ADL's: Independent Group attendance: No groups Were meds taken: Yes Any med S/E: None noted or reported Mental Status Exam Appearance: Unkempt/ discheveled Eye contact: Good Behavior: Lethargic, irritable at times Speech: Clear, audible Mood: Anxious, depressed Affect: Calm, pleasant Thought process: Ruminates on getting medication Thought Content: Perseverates on discharge and medications Cognition: A/O x4 Insight: Fair Judgment: Fair Interventions PRN's used: Atarax, Seroquel, Ativan Therapeutic interventions: 1:1 assessment, therapeutic conversation, active listening, medication administration/education/monitoring, ensured contract for safety, encouragement to utilize coping skills, encouragement to wait longer in between PRN meds, distraction, redirection, provided positive reinforcement, and maintained Q15 minute safety checks and covid isolation. Restraints/seclusion/emergency medication: None Justification of Continued Inpatient Treatment: Pt continues to endorse depression and severe anxiety, he needs further medication adjustment and monitoring in a safe and therapeutic environment to prevent harm to himself. Plan is for pt to transfer to a dual diagnosis center in [place].
[2021-04-27] MEDS: quetiapine 100mg tablet PO SCH (20:08)
--- NOTE | 2021-04-28 01:41 | NUR ---
Nursing Progress Note: Legal hold: 5250 Client on involuntary status for DTS. Report received from RN with use of SBAR Why are they here: Patient is under a 5150 for Danger to self. Patient reports command auditory hallucinations telling him to end his life, recurring thoughts of suicide, unable to safety plan. Assessment What has happened this shift: Pt in room at shift change. Pt continues to stick head out of door to talk to other patients at times and is reminded of Covid protocol. Pt moved to rec room to get out of room to watch TV. Pt watched TV and was excited to be out of room, had big smile on face.Pt denies A/V H. Pt reports he had a small BM today. Pt asked for hydroxyzine with evening meds due to feeling restless. Pt given PRN hydroxyzine 50g with evening meds. Pt voluntarily went to bed shortly after. S/I, H/I: Pt denies A/VH: Pt denies Sleep: Appeared to nap in AM ADL's: Independent Group attendance: No groups Were meds taken: Yes Any med S/E: None noted or reported Mental Status Exam Appearance: Unkempt/ disheveled Eye contact: Good Behavior: tired, up beat Speech: Clear, audible Mood: Anxious, depressed Affect: Calm, pleasant Thought process: Ruminates on getting medication Thought Content: Perseverates on discharge and medications Cognition: A/O x4 Insight: Fair Judgment: Fair Interventions PRN's used: Atarax Therapeutic interventions: 1:1 assessment, therapeutic conversation, active listening, medication administration/education/monitoring, ensured contract for safety, encouragement to utilize coping skills, encouragement to wait longer in between PRN meds, distraction, redirection, provided positive reinforcement, and maintained Q15 minute safety checks and covid isolation. Restraints/seclusion/emergency medication: None Justification of Continued Inpatient Treatment: Pt continues to endorse depression and severe anxiety, he needs further medication adjustment and monitoring in a safe and therapeutic environment to prevent harm to himself. Plan is for pt to transfer to a dual diagnosis center in [place].
[2021-04-28] MEDS: sertraline 50mg tablet PO SCH (07:30)
[2021-04-28] MEDS: quetiapine 100mg tablet PO PRN (07:30)
[2021-04-28] MEDS: hydrOXYzine 25 MG tablet PO PRN ×2 (07:30→13:45)
[2021-04-28] MEDS: nicotine 7mg patch - 24hr TD SCH (07:32)
[2021-04-28 08:00] VITALS: BP 132/84
[2021-04-28] MEDS ORDERED: SERT-434 PO (13:39)
[2021-04-28] MEDS ORDERED: QUET100T34 PO ×2 (13:39)
[2021-04-28] MEDS ORDERED: HYDR-3686 PO (13:39)
[2021-04-28] MEDS ORDERED: QUET-1 PO (14:03)
[2021-04-28] MEDS ORDERED: HYDR50CA PO (14:03)
[2021-04-28] MEDS ORDERED: SERT200C PO (14:03)
--- NOTE | 2021-04-28 17:40 | NUR ---
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 Patient is a good kid and stated he would never touch Fentanyl again. Patient has all his belongings except his valuables. Aparna Bennett, took patient to the Security desk where patient got the rest of his belongings (valuables). Patient is going to [place] with his Aunt who is picking him up. Patient has no wounds and was not here greater than 21 days. Patient is flying to [place] where he plans to find a therapist who does EMDR. Patient ambulatory steady gait with Aparna Bennett.
[2021-04-28] MEDS ORDERED: sertraline 50mg tablet PO SCH (21:00)
== END 2021-04-28 17:50 | disposition home or self-care (01) | DRG 880 ==
LOC: ADULT MH 12:15 → UNDOADMIN 13:04 → ADULT MH 13:04
PROVIDERS: ADMIT Psychiatry & Neurology Psychiatry; ATTEND Psychiatry & Neurology Psychiatry
DX: F41.1 Generalized anxiety disorder (principal); U07.1 COVID-19; R45.851 Suicidal ideations; F43.12 Post-traumatic stress disorder, chronic; F41.0 Panic disorder [episodic paroxysmal anxiety]; F12.10 Cannabis abuse, uncomplicated; F32.A Depression, unspecified; F17.210 Nicotine dependence, cigarettes, uncomplicated; F11.10 Opioid abuse, uncomplicated; F40.10 Social phobia, unspecified; Z81.8 Family history of other mental and behavioral disorders; Z71.6 Tobacco abuse counseling; Z79.899 Other long term (current) drug therapy
CPT/HCPCS: 36415; 80061; 83036; 87081; 87635; J1200; J1630; Q0177